=== PATIENT | male | born 1980 | race Caucasian/White ===

== ENCOUNTER 2018-03-05 16:03 | Emergency (ER) | payer OTHER ==
[2018-03-05] MEDS: METOPROLOL 5 MG/5 ML VIAL IV ×3 (17:14→17:33)
[2018-03-05] MEDS: METOPROLOL TART 50 MG TAB PO (17:22)
[2018-03-05 17:50] LABS: BASO # 0.1 10^3/uL (0.0-0.2); BASO % 0.6 % (0.0-1.0); EOS # 0.4 10^3/uL (0.0-0.50); EOS % 3.1 % (0.0-3.0); HEMATOCRIT 42.6 % (42.0-52.0); HEMOGLOBIN 14.8 g/dl (13.5-17.5); IMMATURE GRANULOCYTE % 0.3 % (0-3.0); LYMPH # 3.7 10^3/uL (1.5-4.5); LYMPH % 28.5 % (24.0-44.0); MEAN CORPUSCULAR HEMOGLOBIN 30.7 pg (27.0-33.0); MEAN CORPUSCULAR HGB CONC 34.7 g/dl (32.0-36.5); MEAN CORPUSCULAR VOLUME 88.4 fl (80.0-96.0); MONO # 1.3 10^3/uL (0.0-0.8); MONO % 9.9 % (0.0-5.0); NEUTROPHILS # 7.5 10^3/uL (1.8-7.7); NEUTROPHILS % 57.6 % (36.0-66.0); PLATELET COUNT, AUTOMATED 257 10^3/uL (150-450); RED BLOOD COUNT 4.82 10^6/uL (4.30-6.10); RED CELL DISTRIBUTION WIDTH 13.5 % (11.5-14.5)
[2018-03-05 18:00] LABS: INR 0.96; PROTHROMBIN TIME 12.9 SECONDS (12.1-14.4)
[2018-03-05 18:09] LABS: ALBUMIN 3.9 GM/DL (3.2-5.2); ALKALINE PHOSPHATASE 125 U/L (45-117); ANION GAP 8 MEQ/L (8-16); AST/SGOT 25 U/L (7-37); BILIRUBIN,DIRECT < 0.1 MG/DL (0.0-0.2); BILIRUBIN,TOTAL 0.3 MG/DL (0.2-1.0); BLOOD UREA NITROGEN 33 MG/DL (7-18); CALCIUM LEVEL 8.8 MG/DL (8.5-10.1); CARBON DIOXIDE LEVEL 25 MEQ/L (21-32); CHLORIDE LEVEL 109 MEQ/L (98-107); CPK CREATINE PHOSPHOKINASE 389 U/L (39-308); GLOMERULAR FILTRATION RATE > 60.0 (>60); GLUCOSE, FASTING 104 MG/DL (70-100); POTASSIUM SERUM 4.2 MEQ/L (3.5-5.1); SODIUM LEVEL 142 MEQ/L (136-145); TROPONIN I < 0.02 NG/ML (< 0.10)
[2018-03-05 18:19] LABS: ALBUMIN/GLOBULIN RATIO 1.08 (1.00-1.93); CK-MB VALUE MASS 6.5 NG/ML (<3.6); MB/CK RELATIVE INDEX 1.67 (< OR =4); NT-PRO BNP 1234 PG/ML (<125); TOTAL PROTEIN 7.5 GM/DL (6.4-8.2)
[2018-03-05 18:29] LABS: ALT/SGPT 43 U/L (12-78)
[2018-03-05] MEDS: AMIODARONE HCL 150 MG in APPROPRIATE DILUENT 1 EA IV ×2 (19:28→19:46)
[2018-03-05] MEDS: APIXABAN 5 MG TAB (ELIQUIS) PO (19:28)
[2018-03-05] MEDS: NS 1,000 ML IV (22:14)
[2018-03-05] MEDS: PROPOFOL 200 MG/20 ML VIAL IV (22:15)
== END 2018-03-05 23:35 | disposition home or self-care (01) ==
LOC: M ED 16:03
DX: I48.91 Unspecified atrial fibrillation (principal); I49.01 Ventricular fibrillation; R94.31 Abnormal electrocardiogram [ECG] [EKG]; R06.02 Shortness of breath; Z79.82 Long term (current) use of aspirin; Z79.899 Other long term (current) drug therapy
CPT/HCPCS: 71045